=== PATIENT | female | born 1975 | race Caucasian/White ===

== ENCOUNTER 2020-06-21 21:43 | Emergency (ER) | payer MEDICAID ==
[~2020-06-21] VITALS: Ht 154.9 cm; Wt 82.2 kg
[2020-06-21 21:55] VITALS: Ht 154.9 cm; Wt 82.2 kg
[2020-06-21 22:57] LABS: BASOPHIL % 0.3 % (0-2); CALCIUM 8.3 mg/dL (8.5-10.1); CARBON DIOXIDE 30.8 mmol/L (21-32); CREATININE SERUM 1.2 mg/dL (0.6-1.0); PLATELET COUNT 245 x10^3mcL (130-400); POTASSIUM SERUM 3.6 mmol/L (3.5-5.1); RED CELL DISTRIBUTION WIDTH 12.6 % (11.5-14.5)
[2020-06-21 23:01] LABS: BILIRUBIN TOTAL 0.33 mg/dL (0.20-1.00); TOTAL PROTEIN, SERUM 6.6 g/dL (6.4-8.2)
[2020-06-21 23:02] LABS: ALBUMIN 3.2 g/dL (3.4-5.0)
[2020-06-22 00:07] VITALS: BP 111/68
== END 2020-06-22 00:08 | disposition home or self-care (01) ==
LOC: ED 21:43
PROVIDERS: Emergency Medicine
DX: K29.70 Gastritis, unspecified, without bleeding (principal); Z90.49 Acquired absence of other specified parts of digestive tract
CPT/HCPCS: J1885; Q0092